=== PATIENT | male | born 1970 | race Caucasian/White ===

== ENCOUNTER 2021-10-29 09:59 | Outpatient (CLI) | payer OTHER, SELFPAY ==
[2021-10-29 13:07] LABS: Albumin* 4.2 g/dL (3.3-5.0); Chloride* 103 mmol/L (96-114); Potassium* 4.1 mmol/L (3.6-5.1); Sodium* 138 mmol/L (135-149)
[2021-10-29 13:09] LABS: Bilirubin Total* 1.1 mg/dL (0.1-1.5); Creatinine* 0.9 mg/dL (0.5-1.5); Estimated Glomerular Filt Rate 103 ml/min
[2021-10-29 13:10] LABS: Alanine Aminotransferase* 102 U/L (4-50); Alkaline Phosphatase* 79 U/L (40-150); Aspartate Amino Transferase* 89 U/L (12-35); Blood Urea Nitrogen* 12 mg/dL (7-30); Calcium* 9.3 mg/dL (8.4-10.6); Carbon Dioxide* 26 mmol/L (20-32); Glucose* 122 mg/dL (60-115); Total Protein* 7.3 g/dL (6.0-8.3)
== END 2021-10-29 10:00 | disposition home or self-care (01) ==
LOC: NFLDREF 10:43
PROVIDERS: PCP Family Medicine; Visit Provider Family Medicine
DX: I10 Essential (primary) hypertension (principal)
CPT/HCPCS: 80053